=== PATIENT | male | born 1950 | race African-American/Black ===

== ENCOUNTER 2020-10-17 13:39 | Emergency (ER) | payer SELFPAY ==
--- NOTE | 2020-10-17 14:04 | EDM.PDOC ---
ED HPI GENERAL MEDICAL PROBLEM - General Chief Complaint: Respiratory Problem Stated Complaint: SOB Time Seen by Provider: 10/17/20 13:44 Source of Information: Reports: Patient History Limitations: Reports: No Limitations - History of Present Illness INITIAL COMMENTS - FREE TEXT/NARRATIVE: 70-year-old male no past medical history presents for cough x1 month. History is from patient and son. Patient is not seen a physician in quite a long time but has no known medical problems. He is a non-smoker. The cough seems to be progressively worsening. It is associated with shortness of breath. Notes some chest pain when coughing and after long coughing fits. Denies any fevers. - Related Data Allergies Allergy/AdvReac Type Severity Reaction Status Date / Time No Known Allergies Allergy Verified 10/17/20 13:48 Home Meds: Home Meds Albuterol [Ventolin HFA] 2 puff INH Q4H PRN #1 inhaler 10/17/20 [Rx] Azithromycin 250 mg PO DAILY 5 Days #6 tablet 10/17/20 [Rx] predniSONE 40 mg PO DAILY 5 Days #10 tab 10/17/20 [Rx] Past Medical History - Past Health History Medical/Surgical History: Denies Medical/Surgical History Social & Family History - Tobacco Use Tobacco Use Status *Q: Never Tobacco User - Recreational Drug Use Recreational Drug Use: No ED ROS GENERAL - Review of Systems Review Of Systems: Comprehensive ROS is negative, except as noted in HPI. ED EXAM, GENERAL - Physical Exam Exam: See Below Exam Limited By: No Limitations General Appearance: Alert, WD/WN, No Apparent Distress Ears: Hearing Grossly Normal Throat/Mouth: Normal Voice, No Airway Compromise Head: Atraumatic, Normocephalic Neck: Normal Inspection Respiratory/Chest: No Respiratory Distress, No Accessory Muscle Use, Other (Bilateral inspiratory and expiratory wheezing with good air entry) Cardiovascular: Normal Peripheral Pulses, Regular Rate, Rhythm, No Edema Extremities: Normal Inspection Neurological: Alert, Normal Cognition, Normal Gait Psychiatric: Normal Affect, Normal Mood Skin Exam: Warm, Dry, Intact, Normal Color #1 Interpretation EKG Date: 10/17/20 Time: 13:43 Rhythm: NSR Rate (Beats/Min): 71 Sandy: Normal P-Wave: Present QRS: Normal ST-T: Normal QT: Normal HI/PQ Interval: 148 Comparison: NA - No Prior EKG EKG Interpretation Comments: NSR rate of 71 no ischemic changes Course - Vital Signs Last Recorded V/S: Last Vital Signs Temp 97.5 F 10/17/20 15:31 Pulse 61 10/17/20 15:31 Resp 17 10/17/20 15:31 BP 131/90 10/17/20 15:31 Pulse Ox 93 L 10/17/20 15:31 - Orders/Labs/Meds Orders: Active Orders 24 hr Category Date Time Status Sodium Chloride 0.9% [Saline Flush] Med 10/17/20 14:09 Active 10 ml FLUSH ASDIRECTED PRN Sodium Chloride 0.9% [Saline Flush] Med 10/17/20 14:09 Active 2.5 ml FLUSH ASDIRECTED PRN Saline Lock Insert [OM.PC] Stat Oth 10/17/20 14:09 Ordered Medication Orders Sodium Chloride (Sodium Chloride 0.9% 10 Ml Syringe) 10 ml FLUSH ASDIRECTED PRN PRN Reason: Keep Vein Open Last Admin: 10/17/20 14:44 Dose: 10 ml Documented by: ASHLEY Sodium Chloride (Sodium Chloride 0.9% 2.5 Ml Syringe) 2.5 ml FLUSH ASDIRECTED PRN PRN Reason: Keep Vein Open Last Admin: 10/17/20 14:43 Dose: 2.5 ml Documented by: ASHLEY Labs: Laboratory Tests 10/17/20 10/17/20 10/17/20 Range/Units 13:56 13:56 13:56 WBC 8.12 (4.0-11.0) K/uL RBC 5.71 (4.50-5.90) M/uL Hgb 16.3 (13.0-17.0) g/dL Hct 47.5 (38.0-50.0) % MCV 83.2 (80.0-98.0) fL MCH 28.5 (27.0-32.0) pg MCHC 34.3 (31.0-37.0) g/dL RDW Std Deviation 43.9 (28.0-62.0) fl RDW Coeff of Esvin 15 (11.0-15.0) % Plt Count 189 (150-400) K/uL MPV 11.60 (7.40-12.00) fL Neut % (Auto) 49.2 (48.0-80.0) % Lymph % (Auto) 34.9 (16.0-40.0) % [place] % (Auto) 11.5 (0.0-15.0) % Eos % (Auto) 4.2 (0.0-7.0) % Baso % (Auto) 0.2 (0.0-1.5) % Neut # (Auto) 4.0 (1.4-5.7) K/uL Lymph # (Auto) 2.8 H (0.6-2.4) K/uL [place] # (Auto) 0.9 H (0.0-0.8) K/uL Eos # (Auto) 0.3 (0.0-0.7) K/uL Baso # (Auto) 0.0 (0.0-0.1) K/uL Nucleated RBC % 0.0 /100WBC Nucleated RBCs # 0 K/uL Sodium 140 (136-148) mmol/L Potassium 4.2 (3.5-5.1) mmol/L Chloride 102 (98-107) mmol/L Carbon Dioxide 30.2 (21.0-32.0) mmol/L BUN 17 (7.0-18.0) mg/dL Creatinine 1.6 H (0.8-1.3) mg/dL Est Cr Clr Drug Dosing TNP Estimated GFR (MDRD) 43.1 ml/min Glucose 111 H (74-106) mg/dL Lactic Acid (0.4-2.0) mmol/L Calcium 9.0 (8.5-10.1) mg/dL Magnesium 2.3 (1.8-2.4) mg/dL Total Bilirubin 0.4 (0.2-1.0) mg/dL AST 36 (15-37) IU/L ALT 43 (14-63) IU/L Alkaline Phosphatase 78 (46-116) U/L Troponin I < 0.050 (0.000-0.056) ng/mL C-Reactive Protein 1.10 H (0.00-0.90) mg/dL B-Natriuretic Peptide 5 (<100) PG/ML Total Protein 7.7 (6.4-8.2) g/dL Albumin 3.6 (3.4-5.0) g/dL Globulin 4.1 H (2.6-4.0) g/dL Albumin/Globulin Ratio 0.9 (0.9-1.6) SARS-CoV-2 RNA (JALYN) (NEGATIVE) 10/17/20 10/17/20 Range/Units 13:56 14:25 WBC (4.0-11.0) K/uL RBC (4.50-5.90) M/uL Hgb (13.0-17.0) g/dL Hct (38.0-50.0) % MCV (80.0-98.0) fL MCH (27.0-32.0) pg MCHC (31.0-37.0) g/dL RDW Std Deviation (28.0-62.0) fl RDW Coeff of Esvin (11.0-15.0) % Plt Count (150-400) K/uL MPV (7.40-12.00) fL Neut % (Auto) (48.0-80.0) % Lymph % (Auto) (16.0-40.0) % [place] % (Auto) (0.0-15.0) % Eos % (Auto) (0.0-7.0) % Baso % (Auto) (0.0-1.5) % Neut # (Auto) (1.4-5.7) K/uL Lymph # (Auto) (0.6-2.4) K/uL [place] # (Auto) (0.0-0.8) K/uL Eos # (Auto) (0.0-0.7) K/uL Baso # (Auto) (0.0-0.1) K/uL Nucleated RBC % /100WBC Nucleated RBCs # K/uL Sodium (136-148) mmol/L Potassium (3.5-5.1) mmol/L Chloride (98-107) mmol/L Carbon Dioxide (21.0-32.0) mmol/L BUN (7.0-18.0) mg/dL Creatinine (0.8-1.3) mg/dL Est Cr Clr Drug Dosing Estimated GFR (MDRD) ml/min Glucose (74-106) mg/dL Lactic Acid 1.0 (0.4-2.0) mmol/L Calcium (8.5-10.1) mg/dL Magnesium (1.8-2.4) mg/dL Total Bilirubin (0.2-1.0) mg/dL AST (15-37) IU/L ALT (14-63) IU/L Alkaline Phosphatase (46-116) U/L Troponin I (0.000-0.056) ng/mL C-Reactive Protein (0.00-0.90) mg/dL B-Natriuretic Peptide (<100) PG/ML Total Protein (6.4-8.2) g/dL Albumin (3.4-5.0) g/dL Globulin (2.6-4.0) g/dL Albumin/Globulin Ratio (0.9-1.6) SARS-CoV-2 RNA (JALYN) NEGATIVE (NEGATIVE) Meds: Medications Generic Name Dose Route Start Last Admin Trade Name Freq PRN Reason Stop Dose Admin Sodium Chloride 10 ml 10/17/20 14:10/17/20 14:44 Sodium Chloride 0.9% 10 Ml Syringe FLUSH 10 ml ASDIRECTED PRN Administration Keep Vein Open Sodium Chloride 2.5 ml 10/17/20 14:10/17/20 14:43 Sodium Chloride 0.9% 2.5 Ml Syringe FLUSH 2.5 ml ASDIRECTED PRN Administration Keep Vein Open Discontinued Medications Generic Name Dose Route Start Last Admin Trade Name Freq PRN Reason Stop Dose Admin Albuterol/Ipratropium 3 ml 10/17/20 14:10/17/20 14:43 Albuterol/Ipratropium 3.0-0.5 Mg/3 Ml Neb Soln NEB 10/17/20 14:10 3 ml ONETIME ONE Administration Methylprednisolone Sodium Succinate 125 mg 10/17/20 14:10/17/20 14:43 Methylprednisolone Sodium Succinate 125 Mg/2 Ml Sdv IVPUSH 10/17/20 14:10 125 mg ONETIME ONE Administration - Re-Assessments/Exams Free Text/Narrative Re-Assessment/Exam: 10/17/20 14:11 We will get labs including Covid testing, chest x-ray. EKG is nonischemic. Patient's vitals are unremarkable aside from hypertension, no hypoxia. He does have significant inspiratory and expiratory wheezing. No history of COPD or asthma reported. Will trial DuoNeb and steroids. 10/17/20 15:43 Labs and imaging are unremarkable. Chest x-ray does not show any evidence of pneumonia. However given the clinical setting I will treat for possible missed pneumonia. Will give steroids to help open up the lungs. Will refer patient to primary care physician for further work-up of worsening cough over the last month. These results were discussed with patient and his son at length. Return precautions were discussed at length. Departure - Departure Time of Disposition: 15:44 Disposition: Home, Self-Care 01 Condition: Good Clinical Impression: Shortness of breath - Discharge Information Prescriptions: Azithromycin 250 mg PO DAILY 5 Days #6 tablet predniSONE 40 mg PO DAILY 5 Days #10 tab Albuterol [Ventolin HFA] 2 puff INH Q4H PRN #1 inhaler PRN Reason: Wheezing Instructions: Shortness of Breath, Adult, [id number] Forms: ED Department Discharge Additional Instructions: Your Covid test was negative. Your chest x-ray does not show any pneumonia. However you have significant wheezing and cough. I have prescribed you an antibiotic called azithromycin that you will take for the next 5 days. I have also prescribed a medication called prednisone which is a steroid to help open up your lungs. I also prescribed an inhaler that you can use to help open up your lungs. You should follow-up with your primary care physician to further work-up why you are having worsening shortness of breath and cough. The following information is given to patients seen in the emergency department who are being discharged to home. This information is to outline your options fo r follow-up care. We provide all patients seen in our emergency department with a follow-up referral. The need for follow-up, as well as the timing and circumstances, are variable depending upon the specifics of your emergency department visit. If you don't have a primary care physician on staff, we will provide you with a referral. We always advise you to contact your personal physician following an emergency department visit to inform them of the circumstance of the visit and for follow-up with them and/or the need for any referrals to a consulting specialist. The emergency department will also refer you to a specialist when appropriate. This referral assures that you have the opportunity for follow-up care with a specialist. All of these measure are taken in an effort to provide you with optimal care, which includes your follow-up. Under all circumstances we always encourage you to contact your private physician who remains a resource for coordinating your care. When calling for follow-up care, please make the office aware that this follow-up is from your recent emergency room visit. If for any reason you are refused follow-up, please contact the [facility] Emergency Department at and asked to speak to the emergency department charge nurse. Please follow up with your primary care physician. If you do not have a primary care physician, see below: [facility] [address], [place] [id number] [facility] [address], [place] [id number] [facility] [address] [place] [address] Sepsis Event Note (ED) - Focused Exam Vital Signs: Vital Signs Temp Pulse Resp BP Pulse Ox 10/17/20 15:31 97.5 F 61 17 131/90 93 L 10/17/20 14:43 68 152/91 H 96 10/17/20 13:49 97.1 F 74 19 191/112 H 96 - My Orders Last 24 Hours: My Active Orders 10/17/20 14:09 Sodium Chloride 0.9% [Saline Flush] 10 ml FLUSH ASDIRECTED PRN Sodium Chloride 0.9% [Saline Flush] 2.5 ml FLUSH ASDIRECTED PRN Saline Lock Insert [OM.PC] Stat - Assessment/Plan Last 24 Hours: My Active Orders 10/17/20 14:09 Sodium Chloride 0.9% [Saline Flush] 10 ml FLUSH ASDIRECTED PRN Sodium Chloride 0.9% [Saline Flush] 2.5 ml FLUSH ASDIRECTED PRN Saline Lock Insert [OM.PC] Stat
[2020-10-17] MEDS ORDERED: methylPREDNISolone Sodium Succinate 125 MG/2 ML SDV IVPUSH ONE (14:09)
[2020-10-17] MEDS ORDERED: Albuterol/Ipratropium 3.0-0.5 MG/3 ML Neb Soln NEB ONE (14:09)
[2020-10-17] MEDS ORDERED: Sodium Chloride 0.9% 2.5 ML Syringe FLUSH PRN (14:09)
[2020-10-17] MEDS ORDERED: Sodium Chloride 0.9% 10 ML Syringe FLUSH PRN (14:09)
[2020-10-17 14:34] LABS: BLOOD UREA NITROGEN,BUN 17 mg/dL (7.0-18.0); CARBON DIOXIDE,CO2 30.2 mmol/L (21.0-32.0); CHLORIDE,CL 102 mmol/L (98-107); GLUCOSE RANDOM 111 mg/dL (74-106); POTASSIUM,K 4.2 mmol/L (3.5-5.1); SODIUM,NA 140 mmol/L (136-148)
--- NOTE | 2020-10-17 15:19 | CR ---
INDICATION: SOB, wheezing TECHNIQUE: Chest 1 view COMPARISON: None FINDINGS: Chronic hypertrophic changes associated with the anterior 1st rib bands. Lungs clear. No infiltrate or edema. No effusion or pneumothorax. Tortuosity aorta. No fracture. IMPRESSION: No acute findings. Dictated by Rolan Hassan MD @ 10/17/2020 3:17:09 PM (Electronically Signed)
== END 2020-10-17 16:02 | disposition home or self-care (01) ==
LOC: MW.ED 13:39
DX: R06.02 Shortness of breath (principal); Z20.822 Contact with and (suspected) exposure to COVID-19
CPT/HCPCS: 36415; 71045; 80053; 83605; 83735; 83880; 84484; 85025; 86140; 87635; 93005; 96374; 99285; J2930; J7620-GY; U0002